=== PATIENT | female | born 1985 | race Caucasian/White ===

== ENCOUNTER 2016-07-23 13:41 | Emergency (ER) | payer SELFPAY ==
[~2016-07-23] VITALS: Ht 149.9 cm; Wt 55.0 kg
[2016-07-23] MEDS ORDERED: ACETAMINOPHEN 650MG/20.3ML UDC PO ONE (16:00)
[2016-07-23] MEDS ORDERED: ONDANSETRON 4MG ODT PO ONE (16:00)
[2016-07-23] MEDS ORDERED: FAMOTIDINE 20MG TABLET PO ONE (16:00)
[2016-07-23 17:11] VITALS: BP 108/59
[2016-07-23 17:52] LABS: CLARITY URINE CLOUDY (CLEAR); COLOR URINE YELLOW (YELLOW); GLUCOSE URINE NEGATIVE (NEGATIVE); KETONES URINE TRACE (NEGATIVE); LEUKOCYTE ESTERASE URINE 1+ (NEGATIVE); NITRITE URINE NEGATIVE (NEGATIVE); OCCULT BLOOD URINE 3+ (NEGATIVE); PH URINE 8.5 (4.5-8.0); PROTEIN URINE 1+ (NEGATIVE); SPECIFIC GRAVITY URINE 1.025 (1.005-1.030)
[2016-07-23 18:05] LABS: MUCUS URINE 2+ /lpf (< = 2+); SQUAMOUS EPITHELIAL CELL URINE 3+ /lpf (RARE/1+)
[2016-07-23 18:06] LABS: WBC URINE 15-25 /hpf (0-2)
[2016-07-23 18:07] LABS: BACTERIA URINE 3+
== END 2016-07-23 18:15 | disposition home or self-care (01) ==
LOC: ER 17:36
DX: N39.0 Urinary tract infection, site not specified (principal); E04.9 Nontoxic goiter, unspecified; F17.210 Nicotine dependence, cigarettes, uncomplicated
CPT/HCPCS: 81001; 81025; 99284; Q0162